=== PATIENT | female | born 1990 | race African-American/Black ===

== ENCOUNTER → 2021-01-30 13:26 | Outpatient (CLI) | payer OTHER ==
[2021-01-30 14:17] LABS: COMPLEMENT C4 43.1 mg/dL (17.4-52.2)
[2021-01-31 10:12] LABS: ANA REFLEX - DBL STRANDED DNA 2 IU/mL (0-9); ANA REFLEX - DIRECT Negative (Negative)
[2021-02-01 18:08] LABS: SMOOTH MUSCLE ABS (ACTIN) 5 Units (0-19)
== END | disposition home or self-care (01) ==
LOC: D.LAB 13:26
PROVIDERS: ATTEND Internal Medicine
DX: D50.9 Iron deficiency anemia, unspecified (principal); I10 Essential (primary) hypertension; R80.9 Proteinuria, unspecified; N18.4 Chronic kidney disease, stage 4 (severe)